=== PATIENT | female | born 1970 | race American Indian/Alaskan Native ===

== ENCOUNTER 2021-03-18 07:47 | Emergency (ER) | payer SELFPAY ==
[2021-03-18] MEDS ORDERED: ASPIRIN 325 MG TAB PO ONE (08:07)
--- NOTE | 2021-03-18 08:55 | XRay Report ---
CHEST 2 VIEWS INDICATION: LEFT ARM AND CHEST PAIN.. COMPARISON: None FINDINGS: Support devices: None. Heart: Within normal limits. Lungs/pleura: No acute air space or interstitial disease. No pneumothorax. Additional findings: None. IMPRESSION: No acute findings. Signer Name: Earle Mcbride Jr, MD Signed: 03/18/2021 8:51 AM Workstation Name: [id number]
[2021-03-18 08:57] LABS: Basophils % (Auto) 0.7 % (0.0-1.8); Eosinophils # (Auto) 0.1 K/mm3 (0.0-0.4); Eosinophils % (Auto) 2.9 % (0.0-4.3); Hematocrit 37.2 % (30.3-42.9); Hemoglobin 12.5 gm/dl (10.1-14.3); Lymphocytes # (Auto) 1.8 K/mm3 (1.2-5.4); Lymphocytes % (Auto) 41.1 % (13.4-35.0); Mean Corpuscular HGB Conc 34 % (30-34); Mean Corpuscular Volume 89 fl (79-97); Monocytes # (Auto) 0.3 K/mm3 (0.0-0.8); Monocytes % (Auto) 7.5 % (0.0-7.3); Platelet Count 274 K/mm3 (140-440); Red Blood Count 4.18 M/mm3 (3.65-5.03); Red Cell Distribution Width 12.6 % (13.2-15.2)
[2021-03-18 09:16] LABS: Alanine Aminotransferase 17 units/L (7-56); Albumin 3.4 g/dL (3.9-5); BUN/Creatinine Ratio 20; Blood Urea Nitrogen 16 mg/dL (7-17); Calcium 8.2 mg/dL (8.4-10.2); Hemolysis Index 41
[2021-03-18] MEDS ORDERED: ONDANSETRON 4 MG/2 ML INJ IM ONE (12:48)
[2021-03-18] MEDS ORDERED: MORPHINE 4 MG/1 ML INJ IM ONE (12:48)
--- NOTE | 2021-03-18 12:51 | Emergency Department Report ---
ED General Adult HPI - General Chief complaint: Chest Pain Stated complaint: HEAD PAIN, HEART PALPITATIONS Time Seen by Provider: 03/18/21 12:40 Source: patient Mode of arrival: Wheelchair Limitations: No Limitations - History of Present Illness Initial comments: Patient is 50 years old female with history of hypertension. Patient presented to the ER complaining of left-sided chest pain, sharp in nature comes and goes started last night. Patient started having headache also, frontal with no radiation. Patient denied any fever or chills. No neck pain. Patient also denied any weakness numbness or tingling sensation. - Related Data Allergies Allergy/AdvReac Type Severity Reaction Status Date / Time No Known Allergies Allergy Verified 03/18/21 08:01 ED Review of Systems ROS: Stated complaint: HEAD PAIN, HEART PALPITATIONS Other details as noted in HPI Comment: All other systems reviewed and negative Constitutional: denies: chills, fever Respiratory: denies: cough, shortness of breath, SOB with exertion Cardiovascular: chest pain. denies: palpitations, dyspnea on exertion Gastrointestinal: denies: abdominal pain, nausea, vomiting, diarrhea, constipation, hematemesis, melena, hematochezia Musculoskeletal: denies: back pain Neurological: headache. denies: weakness, numbness, paresthesias, confusion, abnormal gait ED Past Medical Hx - Past Medical History Hx Hypertension: Yes - Surgical History Additional Surgical History: 1995- - Social History Smoking Status: Never Smoker Substance Use Type: None ED Physical Exam - General Limitations: No Limitations General appearance: alert, in no apparent distress - Head Head exam: Present: atraumatic, normocephalic, normal inspection - Eye Eye exam: Present: normal appearance, PERRL - ENT ENT exam: Present: normal exam, normal orophraynx, mucous membranes moist - Neck Neck exam: Present: normal inspection, full ROM. Absent: tenderness, meningismus - Respiratory Respiratory exam: Present: normal lung sounds bilaterally - Cardiovascular Cardiovascular Exam: Present: regular rate, normal rhythm, normal heart sounds - GI/Abdominal GI/Abdominal exam: Present: soft, normal bowel sounds. Absent: distended, tenderness, guarding, rebound, rigid, organomegaly, mass, bruit, pulsatile mass, hernia - Extremities Exam Extremities exam: Present: normal inspection, full ROM, normal capillary refill. Absent: tenderness, pedal edema, joint swelling, calf tenderness - Back Exam Back exam: Present: normal inspection, full ROM. Absent: CVA tenderness (R), CVA tenderness (L) - Neurological Exam Neurological exam: Present: alert, oriented X3, CN II-XII intact - Psychiatric Psychiatric exam: Present: normal mood - Skin Skin exam: Present: warm, intact, normal color ED Course Vital Signs 03/18/21 13:06 Pulse Rate 58 L Respiratory 17 Rate Blood Pressure 134/81 [Left] O2 Sat by Pulse 100 Oximetry ED Medical Decision Making - Lab Data Result diagrams: 03/18/21 08:22 03/18/21 08:22 - EKG Data -: EKG Interpreted by Oh EKG shows normal: sinus rhythm Rate: normal - EKG Data Interpretation: no acute changes - Radiology Data Radiology results: report reviewed - Medical Decision Making Patient is 50 years old female with history of hypertension. Patient presented to the ER complaining of left-sided chest pain, sharp in nature comes and goes started last night. Patient started having headache also, frontal with no radiation. Patient denied any fever or chills. No neck pain. Patient also denied any weakness numbness or tingling sensation. EKG is unremarkable. Chest x-ray is negative for acute finding. Labs reviewed and is unremarkable including negative troponin x2. CT brain is negative for acute finding. Patient received morphine and Zofran. Patient stated that she is feeling better. Patient advised to follow-up with her primary doctor in the next 2 to 3 days and to return to the ER if she develop any new symptoms. Critical care attestation.: If time is entered above; I have spent that time in minutes in the direct care of this critically ill patient, excluding procedure time. ED Disposition Clinical Impression: Acute chest pain, Acute headache Disposition: DC-01 TO HOME OR SELFCARE Is pt being admited?: No Condition: Stable Instructions: Chest Pain (ED), Nonspecific Chest Pain, Adult, [id number] Referrals: FADY JAMA MD [Primary Care Provider] - 3-5 Days
[2021-03-18] MEDS ORDERED: MORPHINE 4 MG/1 ML INJ IV ONE (13:28)
[2021-03-18] MEDS ORDERED: ONDANSETRON 4 MG/2 ML INJ IV ONE (13:28)
--- NOTE | 2021-03-18 13:38 | Cat Scan Report ---
CT head/brain wo con INDICATION: headache. TECHNIQUE: Routine CT head without contrast. All CT scans at this location are performed using CT dos e reduction for ALARA by means of automated exposure control. COMPARISON: None. FINDINGS: BRAIN / INTRACRANIAL CONTENTS: No acute hemorrhage, mass effect, midline shift, or hydrocephalus. No appreciable acute large territorial or lacunar infarct. No chronic infarct or focal atrophy. Normal b rain volume and ventricular/sulcal size for age. ORBITS: No significant abnormality of visualized orbits. SINUSES / MASTOIDS: No significant abnormality of visualized sinuses and mastoid air cells. ADDITIONAL FINDINGS: None. IMPRESSION: 1. No acute intracranial abnormality. Signer Name: Justyn Deleon MD Signed: 03/18/2021 1:34 PM Workstation Name: [id number]
[2021-03-18 14:50] VITALS: BP 113/61
--- NOTE | 2021-03-20 10:40 | Electrocardiograph Report ---
[facility] Test Date: 2021-03-18 Test Time: 08:09:21 Pat Name: RANDI CHOW Department: Room: Gender: F [employer]: CHRISTOPHER : 1970 Requested By: PO CLAY Order Number: [id number] Reading MD: Jeremy Salinas Measurements Intervals [place] Rate: 67 P: 60 CO: 156 QRS: 24 QRSD: 89 T: 30 QT: 408 QTc: 430 Interpretive Statements Sinus rhythm No previous ECG available for comparison Electronically Signed On 03-20-2021 10:40:05 EDT by Jeremy Salinas
== END 2021-03-18 14:54 | disposition home or self-care (01) ==
LOC: ED 07:47
DX: R07.89 Other chest pain (principal); R51.9 Headache, unspecified; I10 Essential (primary) hypertension
CPT/HCPCS: 36415; 70450; 71046; 80053; 84484; 85025; 93005; 96374; 96375; 99284; J2270; J2405